=== PATIENT | male | born 1960 | race American Indian/Alaskan Native ===

== ENCOUNTER 2017-09-09 02:07 | Emergency (ER) | payer MEDICARE ==
[2017-09-09 03:05] LABS: Hematocrit 45.2 % (35.5-45.6); Mean Corpuscular HGB Conc 33 % (32-34); Mean Corpuscular Hemoglobin 27 pg (28-32); Mean Corpuscular Volume 82 fl (84-94); Platelet Count 186 K/mm3 (140-440); Red Blood Count 5.52 M/mm3 (3.65-5.03); Red Cell Distribution Width 14.4 % (13.2-15.2); White Blood Count 9.4 K/mm3 (4.5-11.0)
[2017-09-09 03:18] LABS: Anion Gap 16 mmol/L; BUN/Creatinine Ratio 19; Blood Urea Nitrogen 13 mg/dL (9-20); Calcium 9.4 mg/dL (8.4-10.2); Carbon Dioxide 31 mmol/L (22-30); Chloride 98.7 mmol/L (98-107); Glucose 151 mg/dL (75-100); Potassium 4.2 mmol/L (3.6-5.0); Sodium 141 mmol/L (137-145)
[2017-09-09 04:03] LABS: Basophils % (Manual) 0 % (0.0-1.8); Blastocytes % (Manual) 0 %; Eosinophils % (Manual) 0 % (0.0-4.3)
[2017-09-09 04:04] LABS: Diff Status Complete; Platelet Estimate Consistent w Auto
[2017-09-09] MEDS ORDERED: ATIVAN IM PRN (10:09)
[2017-09-09] MEDS ORDERED: HALDOL IM PRN (10:09)
[2017-09-09] MEDS ORDERED: HALDOL ONE (10:10)
--- NOTE | 2017-09-09 10:11 | Emergency Department Report ---
ED General Adult HPI - General Chief complaint: Psych Stated complaint: MENTAL HEALTH Time Seen by Provider: 09/09/17 10:02 Source: EMS (ems notes not available at time of chart dictation), RN notes reviewed Mode of arrival: Ambulatory Limitations: Other (patient appears to be actively psychotic, the patient is a poor historian.) - History of Present Illness Initial comments: This is a 56-year-old male. Patient brought to the hospital by EMS for mental health evaluation. As per triage nurse documentation, EMS brought the patient in because Police Department had called him to pick the patient up. Patient indicated that people through cocaine on him, family patient has a past medical history of schizophrenia. The patient cannot describe exacerbating or relieving factors, he cannot describe radiation, he claims this provider when I interviewed the patient. As for further nursing documentation, EMS indicated the patient was offered medications for a humberto; there is no indication with the patient's medications are. His sister contacted 911, the patient was wandering the street. sisters phone numbers include [phone]. Diane Alexandra -: unknown Consistency: constant Improves with: none Worsens with: none Associated Symptoms: denies other symptoms, confusion - Related Data Home Medications Medication Instructions Recorded Confirmed Last Taken Aspirin [Aspirin BABY CHEW TAB] 81 mg PO DAILY 07/08/14 07/08/14 Unknown Simvastatin [Zocor] 20 mg PO DAILY 07/08/14 07/08/14 Unknown Allergies Allergy/AdvReac Type Severity Reaction Status Date / Time No Known Allergies Allergy Unverified 07/08/14 04:28 ED Review of Systems ROS: Stated complaint: MENTAL HEALTH Other details as noted in HPI Comment: Unobtainable due to pts medical conditions ED Past Medical Hx - Past Medical History Previous Medical History?: Yes Hx Psychiatric Treatment: Yes (schizophrenia visit here Jul 2014) Additional medical history: HEART DISEASE? - Social History Smoking Status: Current Every Day Smoker Substance Use Type: None - Medications Home Medications: Home Medications Medication Instructions Recorded Confirmed Last Taken Type Aspirin [Aspirin BABY CHEW TAB] 81 mg PO DAILY 07/08/14 07/08/14 Unknown History Simvastatin [Zocor] 20 mg PO DAILY 07/08/14 07/08/14 Unknown History ED Physical Exam - General Limitations: Other (patient agitated, psychotic, patient delusional, patient is a poor historian) General appearance: alert - Head Head exam: Present: atraumatic, normocephalic - Eye Eye exam: Present: normal appearance, PERRL, EOMI, other (visual acuity intact to finger counting, color perception, reading at a close distance). Absent: nystagmus - ENT ENT exam: Present: normal exam, normal orophraynx, mucous membranes moist, normal external ear exam - Neck Neck exam: Present: normal inspection, full ROM - Respiratory Respiratory exam: Present: normal lung sounds bilaterally. Absent: respiratory distress, chest wall tenderness - Cardiovascular Cardiovascular Exam: Present: regular rate, normal rhythm, normal heart sounds. Absent: systolic murmur, diastolic murmur, rubs, gallop - GI/Abdominal GI/Abdominal exam: Present: soft, normal bowel sounds. Absent: distended, tenderness, guarding, rebound, rigid, pulsatile mass - Rectal Rectal exam: Present: deferred - Extremities Exam Extremities exam: Present: normal inspection, full ROM, normal capillary refill. Absent: pedal edema, joint swelling, calf tenderness - Back Exam Back exam: Present: normal inspection, full ROM. Absent: tenderness, CVA tenderness (R), paraspinal tenderness, vertebral tenderness - Neurological Exam Neurological exam: Present: alert (there is no facial droop. The tongue is midline. Speaking in full sentences. Normal phonation. Visual acuity intact to finger counting. Hearing grossly intact.), other (Extraocular movements intact. Tongue midline. No facial droop. Facial sensation intact to light touch in the V1, V2, V3 distribution bilaterally. 5 and 5 strength in 4 extremities.. Sensation is intact to light touch in 4 extremities.). Absent: motor sensory deficit - Psychiatric Psychiatric exam: Present: agitated - Skin Skin exam: Present: warm, dry, intact, normal color. Absent: rash ED Course Vital Signs 09/09/17 09/09/17 09/09/17 02:10 02:20 09:10 Temperature 97.9 F 97.9 F 98.9 F Pulse Rate 86 84 103 H Respiratory 18 18 20 Rate Blood Pressure 128/65 128/65 Blood Pressure 157/92 [Left] O2 Sat by Pulse 99 99 98 Oximetry ED Medical Decision Making - Lab Data Result diagrams: 09/09/17 02:38 09/09/17 02:38 Vital Signs 09/09/17 09/09/17 09/09/17 02:10 02:20 09:10 Temperature 97.9 F 97.9 F 98.9 F Pulse Rate 86 84 103 H Respiratory 18 18 20 Rate Blood Pressure 128/65 128/65 Blood Pressure 157/92 [Left] O2 Sat by Pulse 99 99 98 Oximetry Lab Results 09/09/17 09/09/17 09/09/17 Range/Units 02:38 02:38 02:38 WBC 9.4 (4.5-11.0) K/mm3 RBC 5.52 H (3.65-5.03) M/mm3 Hgb 15.0 (11.8-15.2) gm/dl Hct 45.2 (35.5-45.6) % MCV 82 L (84-94) fl MCH 27 L (28-32) pg MCHC 33 (32-34) % RDW 14.4 (13.2-15.2) % Plt Count 186 (140-440) K/mm3 [place] % (Auto) Tax Staff Accountant Add Manual Diff Complete Total Counted 100 Seg Neuts % (Manual) 81.0 H (40.0-70.0) % Band Neutrophils % 1.0 % Lymphocytes % (Manual) 13.0 L (13.4-35.0) % Reactive Lymphs % (Man) 0 % Monocytes % (Manual) 5.0 (0.0-7.3) % Eosinophils % (Manual) 0 (0.0-4.3) % Basophils % (Manual) 0 (0.0-1.8) % Metamyelocytes % 0 % Myelocytes % 0 % Promyelocytes % 0 % Blast Cells % 0 % Nucleated RBC % Not Reportable Seg Neutrophils # Man 7.6 (1.8-7.7) K/mm3 Band Neutrophils # 0.1 K/mm3 Lymphocytes # (Manual) 1.2 (1.2-5.4) K/mm3 Abs React Lymphs (Man) 0.0 K/mm3 Monocytes # (Manual) 0.5 (0.0-0.8) K/mm3 Eosinophils # (Manual) 0.0 (0.0-0.4) K/mm3 Basophils # (Manual) 0.0 (0.0-0.1) K/mm3 Metamyelocytes # 0.0 K/mm3 Myelocytes # 0.0 K/mm3 Promyelocytes # 0.0 K/mm3 Blast Cells # 0.0 K/mm3 WBC Morphology Not Reportable Hypersegmented Neuts Not Reportable Hyposegmented Neuts Not Reportable Hypogranular Neuts Not Reportable Smudge Cells Not Reportable Toxic Granulation Not Reportable Toxic Vacuolation Not Reportable Dohle Bodies Not Reportable Pelger-Huet Anomaly Not Reportable [place] Rods Not Reportable Platelet Estimate Consistent w auto Clumped Platelets Not Reportable Plt Clumps, EDTA Not Reportable Large Platelets Not Reportable Giant Platelets Not Reportable Platelet Satelliting Not Reportable Plt Morphology Comment Not Reportable RBC Morphology Not Reportable Dimorphic RBCs Not Reportable Polychromasia Not Reportable Hypochromasia Not Reportable Poikilocytosis Not Reportable Anisocytosis Not Reportable Microcytosis Not Reportable Macrocytosis Not Reportable Spherocytes Not Reportable Pappenheimer Bodies Not Reportable Sickle Cells Not Reportable Target Cells Not Reportable Tear Drop Cells Not Reportable Ovalocytes Not Reportable Helmet Cells Not Reportable [place] Bodies Not Reportable [place] Rings Not Reportable [place] Cells Not Reportable Bite Cells Not Reportable Crenated Cell Not Reportable Elliptocytes Not Reportable Acanthocytes (Spur) Not Reportable Rouleaux Not Reportable Hemoglobin C Crystals Not Reportable Schistocytes Not Reportable Malaria parasites Not Reportable Bal Bodies Not Reportable Hem Pathologist Commnt No Sodium 141 (137-145) mmol/L Potassium 4.2 (3.6-5.0) mmol/L Chloride 98.7 (98-107) mmol/L Carbon Dioxide 31 H (22-30) mmol/L Anion Gap 16 mmol/L BUN 13 (9-20) mg/dL Creatinine 0.7 L (0.8-1.5) mg/dL Estimated GFR > 60 ml/min BUN/Creatinine Ratio 19 % Glucose 151 H (75-100) mg/dL Calcium 9.4 (8.4-10.2) mg/dL Total Creatine Kinase (55-170) units/L Salicylates (2.8-20.0) mg/dL Acetaminophen (10.0-30.0) ug/mL Plasma/Serum Alcohol < 0.01 (0-0.07) gm% 12/04/17 12/04/17 12/04/17 Range/Units 02:38 02:38 02:38 WBC (4.5-11.0) K/mm3 RBC (3.65-5.03) M/mm3 Hgb (11.8-15.2) gm/dl Hct (35.5-45.6) % MCV (84-94) fl MCH (28-32) pg MCHC (32-34) % RDW (13.2-15.2) % Plt Count (140-440) K/mm3 [place] % (Auto) Add Manual Diff Total Counted Seg Neuts % (Manual) (40.0-70.0) % Band Neutrophils % % Lymphocytes % (Manual) (13.4-35.0) % Reactive Lymphs % (Man) % Monocytes % (Manual) (0.0-7.3) % Eosinophils % (Manual) (0.0-4.3) % Basophils % (Manual) (0.0-1.8) % Metamyelocytes % % Myelocytes % % Promyelocytes % % Blast Cells % % Nucleated RBC % Seg Neutrophils # Man (1.8-7.7) K/mm3 Band Neutrophils # K/mm3 Lymphocytes # (Manual) (1.2-5.4) K/mm3 Abs React Lymphs (Man) K/mm3 Monocytes # (Manual) (0.0-0.8) K/mm3 Eosinophils # (Manual) (0.0-0.4) K/mm3 Basophils # (Manual) (0.0-0.1) K/mm3 Metamyelocytes # K/mm3 Myelocytes # K/mm3 Promyelocytes # K/mm3 Blast Cells # K/mm3 WBC Morphology Hypersegmented Neuts Hyposegmented Neuts Hypogranular Neuts Smudge Cells Toxic Granulation Toxic Vacuolation Dohle Bodies Pelger-Huet Anomaly [place] Rods Platelet Estimate Clumped Platelets Plt Clumps, EDTA Large Platelets Giant Platelets Platelet Satelliting Plt Morphology Comment RBC Morphology Dimorphic RBCs Polychromasia Hypochromasia Poikilocytosis Anisocytosis Microcytosis Macrocytosis Spherocytes Pappenheimer Bodies Sickle Cells Target Cells Tear Drop Cells Ovalocytes Helmet Cells [place] Bodies [place] Rings [place] Cells Bite Cells Crenated Cell Elliptocytes Acanthocytes (Spur) Rouleaux Hemoglobin C Crystals Schistocytes Malaria parasites Bal Bodies Hem Pathologist Commnt Sodium (137-145) mmol/L Potassium (3.6-5.0) mmol/L Chloride (98-107) mmol/L Carbon Dioxide (22-30) mmol/L Anion Gap mmol/L BUN (9-20) mg/dL Creatinine (0.8-1.5) mg/dL Estimated GFR ml/min BUN/Creatinine Ratio % Glucose (75-100) mg/dL Calcium (8.4-10.2) mg/dL Total Creatine Kinase 470 H (55-170) units/L Salicylates < 0.3 L (2.8-20.0) mg/dL Acetaminophen < 15.0 (10.0-30.0) ug/mL Plasma/Serum Alcohol (0-0.07) gm% - Radiology Data Radiology results: report reviewed, image reviewed Noncontrast CT scan of the brain is negative - Medical Decision Making Differential diagnosis, including but not limited to: Electrolyte derangement, psychosis, medical clearance for psychiatric placement Assessment and plan: 56-year-old male with probable decompensated schizophrenia. He is placed on a 1013 for delusions, inability to care for himself, and psychiatric consultation. Laboratory studies unremarkable, serum toxicology studies unremarkable, creatinine kinase is slightly elevated but this will decrease with oral hydration. Patient is medicated with Haldol, Ativan and Geodon. Noncontrast CT scan of brain was negative for acute findings. At this point in time, there does not appear to be an immediate medical contraindication to psychiatric admission/evaluation and consultation. Critical care attestation.: If time is entered above; I have spent that time in minutes in the direct care of this critically ill patient, excluding procedure time. ED Disposition Clinical Impression: Medical clearance for psychiatric admission Disposition: DC-01 TO HOME OR SELFCARE Is pt being admited?: No Does the pt Need Aspirin: No Condition: Good Referrals: PRIMARY CARE, [Primary Care Provider] - 3-5 Days
[2017-09-09] MEDS ORDERED: GEODON IM PRN (10:40)
[2017-09-09] MEDS ORDERED: GEODON IM ONE (10:43)
[2017-09-09] MEDS ORDERED: NACL P/F VIAL (10 ML) 0 ML ONE (10:45)
[2017-09-09] MEDS ORDERED: WATER FOR INJ (PF) 10 ML ONE (10:45)
--- NOTE | 2017-09-09 11:40 | Cat Scan Report ---
CT HEAD WITHOUT CONTRAST: HISTORY: Psychiatry, agitated behavior. TECHNIQUE: Sequential 2.5mm CT images. COMPARISON: none. FINDINGS: Cerebral Parenchyma: Within normal limits. Cerebellum: Within normal limits. Brainstem: Within normal limits. Ventricles: Normal. Sella: Normal. Extra-axial spaces: Normal. Basal Cisterns: Normal. Intracranial Hemorrhage: None. Midline Shift: None. Calvarium: Normal. Sinuses: Normal. Mastoid Air Cells: Normal. Visualized Orbits: Normal. IMPRESSION: Cranial CT scan within normal limits.
[2017-09-09 19:51] LABS: Urine Drugs of Abuse Note Disclamer
[2017-09-09 20:10] LABS: Bilirubin,Urine NEG (Negative); Blood,Urine SM (Negative); Ketones,Urine NEG (Negative); Leukocyte Esterase,Urine NEG (Negative); Nitrite,Urine NEG (Negative); Protein,Urine <15 mg/dL mg/dL (Negative); Urobilinogen,Urine < 2.0 mg/dL (<2.0)
[2017-09-09 23:21] VITALS: BP 132/77
== END 2017-09-09 23:22 | disposition home or self-care (01) ==
LOC: EEVIPCON 02:07 → ED 02:07
DX: F29 Unspecified psychosis not due to a substance or known physiological condition (principal); F20.9 Schizophrenia, unspecified; F17.200 Nicotine dependence, unspecified, uncomplicated
CPT/HCPCS: 36415; 70450; 80048; 80307; 81001; 82550; 85007; 85025; 96372; 99285; G0480; J1630; J2060; J3486; 80320

== ENCOUNTER 2018-05-24 03:18 | Emergency (ER) | payer MEDICARE | END 2018-05-24 03:20 | disposition left against medical advice (07) | LOC: ED 03:18 | DX: R42 Dizziness and giddiness (principal); Z53.21 Procedure and treatment not carried out due to patient leaving prior to being seen by health care provider ==

== ENCOUNTER 2018-05-28 02:50 | Emergency (ER) | payer MEDICARE ==
[2018-05-28 04:27] LABS: Basophils % (Auto) 0.7 % (0.0-1.8); Eosinophils # (Auto) 0.1 K/mm3 (0.0-0.4); Eosinophils % (Auto) 1.3 % (0.0-4.3); Hematocrit 45.3 % (35.5-45.6); Hemoglobin 14.8 gm/dl (11.8-15.2); Lymphocytes % (Auto) 17.1 % (13.4-35.0); Mean Corpuscular HGB Conc 33 % (32-34); Mean Corpuscular Hemoglobin 28 pg (28-32); Mean Corpuscular Volume 86 fl (84-94); Monocytes # (Auto) 0.6 K/mm3 (0.0-0.8); Platelet Count 188 K/mm3 (140-440); Red Blood Count 5.27 M/mm3 (3.65-5.03); Red Cell Distribution Width 15.7 % (13.2-15.2)
[2018-05-28 04:58] LABS: BUN/Creatinine Ratio 27; Blood Urea Nitrogen 16 mg/dL (9-20); Calcium 10.2 mg/dL (8.4-10.2); Hemolysis Index 13
--- NOTE | 2018-05-28 05:18 | Emergency Department Report ---
ED Psych HPI - General Chief Complaint: Psych Stated Complaint: MENTAL HEALTH EVALUATION Time Seen by Provider: 05/28/18 05:16 Source: patient Mode of arrival: Ambulatory - History of Present Illness Initial Comments: Patient is a 57-year-old gentleman who was found wandering and is delusional. Patient claims that he is here to see his daughter he's pointing next to him even though there is no one there. Patient states he feels fine he has no other complaints at this time. Patient is unable to answer any additional questions correctly. Patient when asked anything just states that he is here to see his daughter and points. - Related Data Home Medications Medication Instructions Recorded Confirmed Last Taken Aspirin [Aspirin BABY CHEW TAB] 81 mg PO DAILY 07/08/14 09/09/17 Unknown Simvastatin [Zocor] 20 mg PO DAILY 07/08/14 09/09/17 Unknown Allergies Allergy/AdvReac Type Severity Reaction Status Date / Time No Known Allergies Allergy Unverified 07/08/14 04:28 ED Review of Systems ROS: Stated complaint: MENTAL HEALTH EVALUATION Other details as noted in HPI Comment: Unobtainable due to pts medical conditions ED Past Medical Hx - Past Medical History Hx Psychiatric Treatment: Yes (schizophrenia visit here Jul 2014) Additional medical history: HEART DISEASE? - Surgical History Past Surgical History?: No - Social History Smoking Status: Current Every Day Smoker Substance Use Type: None - Medications Home Medications: Home Medications Medication Instructions Recorded Confirmed Last Taken Type Aspirin [Aspirin BABY CHEW TAB] 81 mg PO DAILY 07/08/14 09/09/17 Unknown History Simvastatin [Zocor] 20 mg PO DAILY 07/08/14 09/09/17 Unknown History ED Physical Exam - General Limitations: Language Barrier General appearance: alert, in no apparent distress - Head Head exam: Present: atraumatic, normocephalic - Eye Eye exam: Present: normal appearance - ENT ENT exam: Present: mucous membranes moist - Neck Neck exam: Present: normal inspection - Respiratory Respiratory exam: Present: normal lung sounds bilaterally. Absent: respiratory distress, wheezes, rales, rhonchi - Cardiovascular Cardiovascular Exam: Present: regular rate, normal rhythm. Absent: systolic murmur, diastolic murmur, rubs, gallop - GI/Abdominal GI/Abdominal exam: Present: soft, normal bowel sounds. Absent: distended, tenderness, guarding, rebound - Rectal Rectal exam: Present: deferred - Extremities Exam Extremities exam: Present: normal inspection - Back Exam Back exam: Present: normal inspection - Neurological Exam Neurological exam: Present: alert, altered, CN II-XII intact, normal gait - Psychiatric Psychiatric exam: Present: normal affect, normal mood - Skin Skin exam: Present: warm, dry, intact, normal color. Absent: rash ED Course Vital Signs 05/28/18 03:32 Temperature 98.1 F Pulse Rate 84 Respiratory 18 Rate Blood Pressure 129/82 O2 Sat by Pulse 100 Oximetry ED Medical Decision Making - Lab Data Result diagrams: 05/28/18 04:06 05/28/18 04:06 Lab Results 05/28/18 05/28/18 05/28/18 Range/Units 04:06 04:06 04:06 WBC (4.5-11.0) K/mm3 RBC (3.65-5.03) M/mm3 Hgb (11.8-15.2) gm/dl Hct (35.5-45.6) % MCV (84-94) fl MCH (28-32) pg MCHC (32-34) % RDW (13.2-15.2) % Plt Count (140-440) K/mm3 Lymph % (Auto) (13.4-35.0) % [place] % (Auto) (0.0-7.3) % Eos % (Auto) (0.0-4.3) % Baso % (Auto) (0.0-1.8) % Lymph # (1.2-5.4) K/mm3 [place] # (0.0-0.8) K/mm3 Eos # (0.0-0.4) K/mm3 Baso # (0.0-0.1) K/mm3 Seg Neutrophils % (40.0-70.0) % Seg Neutrophils # (1.8-7.7) K/mm3 Sodium 142 (137-145) mmol/L Potassium 4.4 (3.6-5.0) mmol/L Chloride 100.6 (98-107) mmol/L Carbon Dioxide 25 (22-30) mmol/L Anion Gap 21 mmol/L BUN 16 (9-20) mg/dL Creatinine 0.6 L (0.8-1.5) mg/dL Estimated GFR > 60 ml/min BUN/Creatinine Ratio 27 % Glucose 81 (75-100) mg/dL Calcium 10.2 (8.4-10.2) mg/dL Acetaminophen < 5.0 L (10.0-30.0) ug/mL Plasma/Serum Alcohol < 0.01 (0-0.07) % 05/28/18 Range/Units 04:06 WBC 5.9 (4.5-11.0) K/mm3 RBC 5.27 H (3.65-5.03) M/mm3 Hgb 14.8 (11.8-15.2) gm/dl Hct 45.3 (35.5-45.6) % MCV 86 (84-94) fl MCH 28 (28-32) pg MCHC 33 (32-34) % RDW 15.7 H (13.2-15.2) % Plt Count 188 (140-440) K/mm3 Lymph % (Auto) 17.1 (13.4-35.0) % [place] % (Auto) 10.0 H (0.0-7.3) % Eos % (Auto) 1.3 (0.0-4.3) % Baso % (Auto) 0.7 (0.0-1.8) % Lymph # 1.0 L (1.2-5.4) K/mm3 [place] # 0.6 (0.0-0.8) K/mm3 Eos # 0.1 (0.0-0.4) K/mm3 Baso # 0.0 (0.0-0.1) K/mm3 Seg Neutrophils % 70.9 H (40.0-70.0) % Seg Neutrophils # 4.2 (1.8-7.7) K/mm3 Sodium (137-145) mmol/L Potassium (3.6-5.0) mmol/L Chloride (98-107) mmol/L Carbon Dioxide (22-30) mmol/L Anion Gap mmol/L BUN (9-20) mg/dL Creatinine (0.8-1.5) mg/dL Estimated GFR ml/min BUN/Creatinine Ratio % Glucose (75-100) mg/dL Calcium (8.4-10.2) mg/dL Acetaminophen (10.0-30.0) ug/mL Plasma/Serum Alcohol (0-0.07) % Critical care attestation.: If time is entered above; I have spent that time in minutes in the direct care of this critically ill patient, excluding procedure time. ED Disposition Condition: Stable
[2018-05-28 14:19] LABS: Bilirubin,Urine NEG (Negative); Blood,Urine NEG (Negative); Calcium Oxalate Crystals,Urine 1+; Color,Urine Yellow (Yellow); Mucus,Urine FEW /HPF; Protein,Urine <15 mg/dL mg/dL (Negative); Sperm,Urine FEW /HPF (NP)
[2018-05-28 14:23] LABS: Amphetamine Screen,Urine PRESUMPTIVE NEGATIVE; Benzodiazepines Screen,Urine PRESUMPTIVE NEGATIVE; Cannabinoid Screen,Urine PRESUMPTIVE NEGATIVE; Cocaine Screen,Urine PRESUMPTIVE NEGATIVE; Methadone Screen,Urine PRESUMPTIVE NEGATIVE; Opiate Screen,Urine PRESUMPTIVE NEGATIVE
--- NOTE | 2018-05-28 17:16 | Consultation ---
History of Present Illness - Reason for Consult Consult date: 06/04/18 Reason for consult: Initial Psychiatric Evaluation - Chief Complaint Chief complaint: Patient is grossly psychotic. Patient is disorganized. - History of Present Psychiatric Illness Patient is a 57-year-old gentleman who was found wandering and is delusional. Patient response to questions are inappropriate. He states/repeats, " I'm here to see my daughter." Patient denies any past psychiatric history. Patient states he feels fine he has no other complaints at this time. Patient is unable to answer any additional questions correctly. Patient when asked anything just states that he is here to see his daughter and points. Medications and Allergies Allergies Allergy/AdvReac Type Severity Reaction Status Date / Time No Known Allergies Allergy Unverified 07/08/14 04:28 Home Medications Medication Instructions Recorded Confirmed Last Taken Type Aspirin [Aspirin BABY CHEW TAB] 81 mg PO DAILY 07/08/14 09/09/17 Unknown History Simvastatin [Zocor] 20 mg PO DAILY 07/08/14 09/09/17 Unknown History Mental Status Exam - Vital signs Last Vital Signs Temp 97.9 F 05/28/18 10:02 Pulse 89 05/28/18 10:02 Resp 16 05/28/18 10:02 BP 116/63 05/28/18 10:02 Pulse Ox 100 05/28/18 10:00 - Exam Narrative exam: Mental Status Exam General Appearance: Causally Dressed Eye Contact: Intermittent Orientation: Alert and oriented x 2 (person, place) Attitude/Behavior: Cooperative Sensorium: Distracted Psychomotor & Musculoskeletal Activity: Ambulatory Mood: Unable to Assess Affect: Constricted Speech/Language: Regular rate and tone Thought Processes: Disorganized Thought Content: Impoverished, delusions of paranoia (?) Perception: Although he denies, patient appears internally preoccupied. Seen talking/laughing with self Concentration/Attention: Impaired Suicidal Ideations/Plan: Unable to Assess Homicidal Ideations/Plan: Unable to Assess Judgment: Poor Insight: Poor Results Result Diagrams: 05/28/18 04:06 05/28/18 04:06 Abnormal lab results 05/28/18 05/28/18 05/28/18 Range/Units 04:06 04:06 04:06 RBC (3.65-5.03) M/mm3 RDW (13.2-15.2) % [place] % (Auto) (0.0-7.3) % Lymph # (1.2-5.4) K/mm3 Seg Neutrophils % (40.0-70.0) % Creatinine 0.6 L (0.8-1.5) mg/dL Salicylates < 0.3 L (2.8-20.0) mg/dL Acetaminophen < 5.0 L (10.0-30.0) ug/mL 05/28/18 Range/Units 04:06 RBC 5.27 H (3.65-5.03) M/mm3 RDW 15.7 H (13.2-15.2) % [place] % (Auto) 10.0 H (0.0-7.3) % Lymph # 1.0 L (1.2-5.4) K/mm3 Seg Neutrophils % 70.9 H (40.0-70.0) % Creatinine (0.8-1.5) mg/dL Salicylates (2.8-20.0) mg/dL Acetaminophen (10.0-30.0) ug/mL All other labs normal. Assessment and Plan Assessment and plan: Impression: Psychosis Unspecified. Patient is calm during the assessment. Patient answer questions inappropriately, therefore provider is unable to fully assess. Although patient denies psychosis, he appears internally preoccupied. Seen talking/laughing with self. DDx: r/o Schizophrenia r/o Schizoaffective Disorder Recommendation/Plan: 1. Continue 1013 and assist with placement to an inpatient psychiatric facility 2. Gain collateral to determine proper disposition.
[2018-05-28 21:18] VITALS: BP 124/87
== END 2018-05-29 02:56 ==
LOC: EEVIPCON 02:50 → ED 02:50
DX: F20.9 Schizophrenia, unspecified (principal); F22 Delusional disorders; F17.200 Nicotine dependence, unspecified, uncomplicated; Z79.82 Long term (current) use of aspirin
CPT/HCPCS: 36415; 80048; 80307; 81001; 85025; 99285; G0480; 80320

== ENCOUNTER 2020-08-24 19:15 | Emergency (ER) | payer MEDICARE ==
[2020-08-24 20:11] VITALS: BP 113/62
--- NOTE | 2020-08-24 20:12 | Emergency Department Report ---
Stated Complaint: MEDICATION REFILL Time Seen by Provider: 08/24/20 20:09 - HPI History of Present Illness: Patient presents without any chief complaint and states seizures here to hang out in the ER. He denies any chest pain, shortness of breath, headache, or other symptoms. MSE screening note: Focused history and physical exam performed. Due to findings the following was ordered: ED Medical Decision Making - Medical Decision Making Patient presents without any chief complaint and states seizures here to hang out in the ER. He denies any chest pain, shortness of breath, headache, or other symptoms. His vitals are normal and he is well-appearing. Patient to discharge home. Recommend follow-up with PCP for ED Disposition for MSE Clinical Impression: No complaints Disposition: MED SCREENING EXAM-LEFT Is pt being admited?: No Condition: Stable Referrals: [facility] [Provider Group] - 3-5 Days ED Review of Systems ROS: Stated complaint: MEDICATION REFILL Other details as noted in HPI Constitutional: denies: chills, fever Eyes: denies: eye pain, eye discharge, vision change ENT: denies: ear pain, throat pain Respiratory: denies: cough, shortness of breath, wheezing Cardiovascular: denies: chest pain, palpitations Endocrine: no symptoms reported Gastrointestinal: denies: abdominal pain, nausea, diarrhea Genitourinary: denies: urgency, dysuria Musculoskeletal: denies: back pain, joint swelling, arthralgia Skin: denies: rash, lesions Neurological: denies: headache, weakness, paresthesias Psychiatric: denies: anxiety, depression Hematological/Lymphatic: denies: easy bleeding, easy bruising ED Physical Exam - General Limitations: No Limitations - Head Head exam: Present: atraumatic, normocephalic - Eye Eye exam: Present: normal appearance. Absent: scleral icterus - Neck Neck exam: Present: full ROM - Respiratory Respiratory exam: Present: normal lung sounds bilaterally. Absent: respiratory distress - Cardiovascular Cardiovascular Exam: Present: regular rate, normal rhythm. Absent: systolic mu rmur, diastolic murmur, rubs, gallop - Neurological Exam Neurological exam: Present: alert, oriented X3, normal gait - Psychiatric Psychiatric exam: Present: normal affect, normal mood - Skin Skin exam: Present: warm, dry, intact, normal color. Absent: rash
== END 2020-08-24 21:03 | disposition left against medical advice (07) ==
LOC: ED 19:15
DX: G40.909 Epilepsy, unspecified, not intractable, without status epilepticus (principal); Z53.21 Procedure and treatment not carried out due to patient leaving prior to being seen by health care provider

== ENCOUNTER 2020-08-25 08:50 | Emergency (ER) | payer MEDICARE ==
[2020-08-25 09:07] VITALS: BP 139/90
[2020-08-25] MEDS ORDERED: ASPIRIN 325 MG TAB PO ONE (10:08)
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
--- NOTE | 2020-08-25 10:29 | XRay Report ---
CHEST 2 VIEWS INDICATION / CLINICAL INFORMATION: Chest pain. COMPARISON: None available. FINDINGS: SUPPORT DEVICES: None. HEART / MEDIASTINUM: The heart size and pulmonary vasculature are normal. The aorta is normal in bhavesh brock. LUNGS / PLEURA: No significant pulmonary or pleural abnormality. No pneumothorax. ADDITIONAL FINDINGS: There is mild thoracolumbar scoliosis. IMPRESSION: No acute findings. Signer Name: Tristen Rasheed MD Signed: 08/25/2020 10:25 AM Workstation Name: [id number]
[2020-08-25 11:02] LABS: Basophils % (Auto) 0.7 % (0.0-1.8); Eosinophils % (Auto) 0.5 % (0.0-4.3); Hematocrit 46.5 % (35.5-45.6); Hemoglobin 15.8 gm/dl (11.8-15.2); Lymphocytes # (Auto) 1.2 K/mm3 (1.2-5.4); Lymphocytes % (Auto) 16.8 % (13.4-35.0); Mean Corpuscular HGB Conc 34 % (32-34); Mean Corpuscular Volume 81 fl (84-94); Monocytes # (Auto) 0.5 K/mm3 (0.0-0.8); Monocytes % (Auto) 6.7 % (0.0-7.3); Platelet Count 204 K/mm3 (140-440); Red Blood Count 5.76 M/mm3 (3.65-5.03)
[2020-08-25 11:20] LABS: Alanine Aminotransferase 11 units/L (7-56); Albumin 4.6 g/dL (3.9-5); Blood Urea Nitrogen 15 mg/dL (9-20); Calcium 9.8 mg/dL (8.4-10.2); Hemolysis Index 7
[2020-08-25 11:21] LABS: BUN/Creatinine Ratio 30
== END 2020-08-25 11:37 | disposition home or self-care (01) ==
LOC: ED 08:50
DX: R07.89 Other chest pain (principal); F20.9 Schizophrenia, unspecified; Z79.899 Other long term (current) drug therapy
CPT/HCPCS: 36415; 71046; 80053; 84484; 85025; 93005

== ENCOUNTER 2020-08-25 21:51 | Emergency (ER) | payer MEDICARE ==
[2020-08-25 23:59] VITALS: BP 120/61
== END 2020-08-26 | disposition left against medical advice (07) ==
LOC: ED 21:51
DX: R07.89 Other chest pain (principal); Z53.21 Procedure and treatment not carried out due to patient leaving prior to being seen by health care provider
CPT/HCPCS: 93005

== ENCOUNTER 2020-09-06 23:17 | Emergency (ER) | payer MEDICARE ==
--- NOTE | 2020-09-06 23:53 | XRay Report ---
CHEST 1 VIEW INDICATION: Chest Pain. COMPARISON: 08/25/2020 FINDINGS: SUPPORT DEVICES: None. HEART: Within normal limits. LUNGS/PLEURA: No acute air space or interstitial disease. ADDITIONAL FINDINGS: None. IMPRESSION: 1. No acute findings. Signer Name: Jamin Hubbard MD Signed: 09/06/2020 11:48 PM Workstation Name: [id number]
[2020-09-07 00:36] LABS: Hematocrit 47.6 % (35.5-45.6); Hemoglobin 15.9 gm/dl (11.8-15.2); Mean Corpuscular HGB Conc 33 % (32-34); Mean Corpuscular Volume 82 fl (84-94); Platelet Count 272 K/mm3 (140-440); Red Cell Distribution Width 14.4 % (13.2-15.2)
[2020-09-07 00:38] LABS: Lymphocytes % (Auto) 9.9 % (13.4-35.0); Monocytes % (Auto) 8.5 % (0.0-7.3)
[2020-09-07 00:39] LABS: Basophils # (Auto) 0.4 K/mm3 (0.0-0.1); Eosinophils # (Auto) 0.1 K/mm3 (0.0-0.4); Lymphocytes # (Auto) 0.6 K/mm3 (1.2-5.4); Monocytes # (Auto) 0.7 K/mm3 (0.0-0.8)
[2020-09-07 01:02] LABS: Blood Urea Nitrogen 15 mg/dL (9-20); Calcium 9.9 mg/dL (8.4-10.2); Hemolysis Index 24
[2020-09-07 01:15] LABS: BUN/Creatinine Ratio 25
[2020-09-07] MEDS ORDERED: DEXTROSE 50% IN WATER (25GM) 50 ML SYRINGE IV PRN (03:03)
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
[2020-09-07] MEDS ORDERED: SODIUM CHLORIDE 0.9% 500 ML 500 ML IV ONE (11:42)
[2020-09-07] MEDS: VALPROIC ACID 250 MG CAP PO SCH ×2 (13:01→21:59)
[2020-09-07 17:33] LABS: Bilirubin,Urine NEG (Negative); Blood,Urine NEG (Negative); Color,Urine Yellow (Yellow); Mucus,Urine FEW /HPF; Protein,Urine <15 mg/dL mg/dL (Negative)
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
[2020-09-08] MEDS ORDERED: PALIPERIDONE ER 3 MG TAB PO SCH (10:00)
[2020-09-08] MEDS ORDERED: VALPROIC ACID 250 MG CAP PO SCH (10:00)
[2020-09-08] MEDS ORDERED: HALOPERIDOL LACTATE 5 MG/1 ML INJ IM PRN (11:47)
[2020-09-08] MEDS ORDERED: LORazepam 2 MG/ML VIAL IM PRN (11:47)
[2020-09-08 16:36] VITALS: BP 113/45
== END 2020-09-08 16:15 ==
LOC: ED 23:17
DX: F29 Unspecified psychosis not due to a substance or known physiological condition (principal); F25.9 Schizoaffective disorder, unspecified; F17.200 Nicotine dependence, unspecified, uncomplicated; Z86.39 Personal history of other endocrine, nutritional and metabolic disease; Z79.899 Other long term (current) drug therapy; Z00.01 Encounter for general adult medical examination with abnormal findings
CPT/HCPCS: 36415; 71045; 80048; 81001; 82550; 82962; 83735; 84443; 84484; 85025; 93005; 96374; 99285; J7040; 80320; 96361; G0480

== ENCOUNTER 2020-11-09 01:20 | Emergency (ER) | payer MEDICARE ==
--- NOTE | 2020-11-09 01:47 | Emergency Department Report ---
HPI - General Chief Complaint: Arrhythmia/Palpitations Time Seen by Provider: 11/09/20 01:35 - [facility] HPI: Room 38 The patient is a 59-year-old male present with a chief complaint of "heart fluttering." The patient states this evening at 20: 00 he was at rest sitting on the sofa when his heart began fluttering. Patient states his heart was not beating quickly he just felt irregular. Patient denied ever having chest pain, shortness of breath nausea or vomiting. Patient states the symptoms lasted for approximate 1 hour and then resolved. Patient currently denies complaints. ED Past Medical Hx - Past Medical History Previous Medical History?: No Hx Psychiatric Treatment: Yes (schizophrenia visit here Jul 2014) Additional medical history: HEART DISEASE? - Surgical History Past Surgical History?: Yes Additional Surgical History: hernia - Family History Family history: no significant - Social History Smoking Status: Never Smoker Substance Use Type: None - Medications Home Medications: Home Medications Medication Instructions Recorded Confirmed Last Taken Type haloperidoL [Haloperidol] 20 mg PO QPM 09/07/20 09/07/20 Unknown History ED Review of Systems ROS: Stated complaint: ALTERED MENTAL Other details as noted in HPI Constitutional: no symptoms reported Eyes: denies: eye pain ENT: denies: throat pain Respiratory: denies: shortness of breath Cardiovascular: palpitations. denies: chest pain Endocrine: no symptoms reported Gastrointestinal: denies: nausea, vomiting Genitourinary: denies: dysuria Musculoskeletal: denies: back pain Neurological: denies: headache Physical Exam - Physical Exam Vital Signs: Vital Signs 11/09/20 11/09/20 01:37 01:42 Pulse Rate 88 Respiratory 16 16 Rate Blood Pressure 139/82 [Right] O2 Sat by Pulse 98 Oximetry Physical Exam: GENERAL: The patient is well-developed well-nourished male lying on stretcher not appearing to be in acute distress. [] HEENT: Normocephalic. Atraumatic. Extraocular motions are intact. Patient has moist mucous membranes. NECK: Supple. No meningitic signs are noted. There is no adenopathy noted. CHEST/LUNGS: Clear to auscultation. There is no respiratory distress noted. HEART/CARDIOVASCULAR: Regular. There is no tachycardia. There is no gallop rub or murmur. ABDOMEN: Abdomen is soft, nontender. Patient has normal bowel sounds. There is no abdominal distention. SKIN: There is no rash. There is no edema. There is no diaphoresis. NEURO: The patient is awake, alert, and oriented. The patient is cooperative. The patient has normal speech MUSCULOSKELETAL:There is no evidence of acute injury. ED Course Vital Signs 11/09/20 11/09/20 01:37 01:42 Pulse Rate 88 Respiratory 16 16 Rate Blood Pressure 139/82 [Right] O2 Sat by Pulse 98 Oximetry - Reevaluation(s) Reevaluation #1: 11/09/20 05:44 Patient remains asymptomatic. ED Medical Decision Making - Lab Data Result diagrams: 11/09/20 01:53 11/09/20 01:53 Laboratory Tests 11/09/20 11/09/20 11/09/20 01:53 01:53 01:53 WBC 7.3 RBC 5.67 H Hgb 15.3 H Hct 46.7 H MCV 82 L MCH 27 L MCHC 33 RDW 15.3 H Plt Count 231 Lymph % (Auto) 19.5 [place] % (Auto) 8.6 H Eos % (Auto) 1.0 Baso % (Auto) 0.7 Lymph # (Auto) 1.4 [place] # (Auto) 0.6 Eos # (Auto) 0.1 Baso # (Auto) 0.1 Seg Neutrophils % 70.2 H Seg Neutrophils # 5.1 Sodium 139 Potassium 4.0 Chloride 103.6 Carbon Dioxide 23 Anion Gap 16 BUN 17 Creatinine 0.5 L Estimated GFR > 60 BUN/Creatinine Ratio 34 Glucose 72 L Calcium 9.3 Magnesium 2.20 Total Creatine Kinase 302 H CK-MB (CK-2) 5.9 H CK-MB (CK-2) Rel Index 1.9 Troponin T < 0.010 TSH 2.400 Free T4 1.42 11/09/20 05:11 WBC RBC Hgb Hct MCV MCH MCHC RDW Plt Count Lymph % (Auto) [place] % (Auto) Eos % (Auto) Baso % (Auto) Lymph # (Auto) [place] # (Auto) Eos # (Auto) Baso # (Auto) Seg Neutrophils % Seg Neutrophils # Sodium Potassium Chloride Carbon Dioxide Anion Gap BUN Creatinine Estimated GFR BUN/Creatinine Ratio Glucose Calcium Magnesium Total Creatine Kinase CK-MB (CK-2) CK-MB (CK-2) Rel Index Troponin T < 0.010 TSH Free T4 - EKG Data -: EKG Interpreted by Nc EKG shows normal: sinus rhythm Rate: normal - EKG Data When compared to previous EKG there are: previous EKG unavailable Interpretation: other (No ischemic changes seen) 11/09/20 04:52 EKG #2 normal sinus rhythm at 87 bpm. No ischemic changes seen, no ectopy - Radiology Data Radiology results: report reviewed (Chest x-ray), image reviewed (Chest x-ray) interpreted by me: Chest x-ray-no focal infiltrates, no pneumothorax. No foreign body seen CHEST 1 VIEW 2:04 AM INDICATION / CLINICAL INFORMATION: "Heart fluttering". COMPARISON: 09/06/20. FINDINGS: SUPPORT DEVICES: None. HEART / MEDIASTINUM: The heart size and pulmonary vasculature are normal. LUNGS / PLEURA: Mildly reduced lung volumes without acute pulmonary or pleural abnormality. No p neumothorax. ADDITIONAL FINDINGS: No significant additional findings. IMPRESSION: Low lung volumes without acute abnormality. Signer Name: Tristen Rasheed MD Signed: 11/09/2020 1:12 AM Workstation Name: [id number] - Differential Diagnosis Dysrhythmia, A. fib, anxiety Critical care attestation.: If time is entered above; I have spent that time in minutes in the direct care of this critically ill patient, excluding procedure time. ED Disposition Clinical Impression: Palpitations Disposition: -01 TO HOME OR SELFCARE Is pt being admited?: No Does the pt Need Aspirin: No Condition: Stable Instructions: Palpitations, [id number], Ambulatory Cardiac Monitoring Additional Instructions: Return to the emergency department should you develop worsening symptoms, inability to tolerate food or liquids, high fever or any other concerns Referrals: MICHAELA DUMONT MD [Staff Physician] - 3-5 Days (Dr. Dumont is a primary physician. Please follow-up with him to be established as a patient) VIET RO MD [Staff Physician] - 3-5 Days (Dr. Ro is a digital forensics investigator. Please follow-up with him for further evaluation) Time of Disposition: 05:45
--- NOTE | 2020-11-09 02:16 | XRay Report ---
CHEST 1 VIEW 2:04 AM INDICATION / CLINICAL INFORMATION: "Heart fluttering". COMPARISON: 09/06/20. FINDINGS: SUPPORT DEVICES: None. HEART / MEDIASTINUM: The heart size and pulmonary vasculature are normal. LUNGS / PLEURA: Mildly reduced lung volumes without acute pulmonary or pleural abnormality. No pneumo thorax. ADDITIONAL FINDINGS: No significant additional findings. IMPRESSION: Low lung volumes without acute abnormality. Signer Name: Tristen Rasheed MD Signed: 11/09/2020 2:12 AM Workstation Name: [id number]
[2020-11-09 02:35] LABS: BUN/Creatinine Ratio 34; Blood Urea Nitrogen 17 mg/dL (9-20); Calcium 9.3 mg/dL (8.4-10.2); Creatine Kinase MB 5.9 ng/mL (0.0-4.0); Hemolysis Index 20
[2020-11-09 02:45] LABS: Free T4 (Free Thyroxine) 1.42 ng/dL (0.76-1.46)
[2020-11-09 02:51] LABS: Basophils # (Auto) 0.1 K/mm3 (0.0-0.1); Basophils % (Auto) 0.7 % (0.0-1.8); Eosinophils # (Auto) 0.1 K/mm3 (0.0-0.4); Hematocrit 46.7 % (35.5-45.6); Hemoglobin 15.3 gm/dl (11.8-15.2); Lymphocytes # (Auto) 1.4 K/mm3 (1.2-5.4); Lymphocytes % (Auto) 19.5 % (13.4-35.0); Mean Corpuscular HGB Conc 33 % (32-34); Mean Corpuscular Volume 82 fl (84-94); Monocytes # (Auto) 0.6 K/mm3 (0.0-0.8); Monocytes % (Auto) 8.6 % (0.0-7.3); Platelet Count 231 K/mm3 (140-440); Red Blood Count 5.67 M/mm3 (3.65-5.03); Red Cell Distribution Width 15.3 % (13.2-15.2)
[2020-11-09 04:18] VITALS: BP 124/82
== END 2020-11-09 06:02 | disposition home or self-care (01) ==
LOC: ED 01:20
DX: R00.2 Palpitations (principal); F25.9 Schizoaffective disorder, unspecified; Z79.899 Other long term (current) drug therapy; Z98.890 Other specified postprocedural states
CPT/HCPCS: 36415; 71045; 80048; 82550; 82553; 83735; 84439; 84443; 84484; 85025; 93005